=== PATIENT | male | born 1955 | race Caucasian/White ===

== ENCOUNTER 2020-01-14 11:12 | Emergency (ER) | payer MEDICARE, SELFPAY ==
[2020-01-14 11:25] VITALS: BP 130/80; PULSE 77; RESP 18; TEMP 37; O2SAT 98
--- NOTE | 2020-01-14 12:10 | PC.NURSE ---
NO UC ORDERED PER PROVIDER
--- NOTE | 2020-01-14 12:10 | ED.ABDPAIN ---
HPI - Abdominal Pain General Chief Complaint: Urogenital-Male Stated Complaint: Lower back pain Time Seen by Provider: 01/14/20 11:55 Source: patient and RN notes reviewed Mode of arrival: ambulatory Limitations: no limitations History of Present Illness HPI narrative: Patient presents today with a 2-week history of right upper back pain radiating to the right upper abdomen with urinary frequency. Pain increases when he goes to sit up or lie down. Rates his pain 3?6/10 and has been using a heating pad. Pain has been constant. Denies fever, nausea, vomiting, diarrhea, constipation, dysuria, hematuria. MD elicited complaint: other (Low back pain) Related Data Home Medications Medication Instructions Recorded Confirmed aripiprazole mg 01/14/20 glipizide mg PO 01/14/20 levothyroxine 01/14/20 lisinopril-hydrochlorothiazide tablet 01/14/20 pantoprazole PO 01/14/20 pravastatin 01/14/20 sertraline mg 01/14/20 sertraline mg 01/14/20 sildenafil 01/14/20 tamsulosin mg PO 01/14/20 testosterone cypionate mg 01/14/20 trazodone 01/14/20 Allergies Allergy/AdvReac Type Severity Reaction Status Date / Time acetaminophen Allergy Severe RASH Verified 01/14/20 11:42 codeine Allergy Severe RASH Verified 01/14/20 11:42 oxycodone Allergy Severe RASH Verified 01/14/20 11:42 Review of Systems Review of Systems: Narrative: CONSTITUTIONAL: Denies body aches, fever, chills, or sweats. EYES: Denies visual changes, redness, or discharge. ENT: Denies rhinorrhea, congestion, sore throat, or otalgia. CARDIOVASCULAR: Denies chest pain, palpitations, or edema. RESPIRATORY: Denies cough or dyspnea. GASTROINTESTINAL: Denies nausea, vomiting, or diarrhea. GENITOURINARY: Denies dysuria or hematuria. SKIN: Denies rash, itching, or wounds. MUSCULOSKELETAL: Denies joint pain, or myalgia. + Right back pain radiating to the right NEUROLOGIC: Denies headache, numbness, tingling, or weakness. PSYCH: Denies depression or anxiety. [facility] Past Medical History Medical History (Updated 01/14/20 @ 12:18 by Radha Riggs, CARE SUPPORT REPRESENTATIVE, ) Diabetes Comments At time of signature, I have reviewed and agree with nursing past medical, surgical, social and family history unless otherwise noted. Please see nursing chart for further information. There is no relevant family history pertinent to the presenting complaint Exam Narrative: Exam Narrative: GENERAL: Well-appearing, well-nourished, and in no acute distress. HEAD: Normocephalic, atraumatic. EYES: EOMI. No redness or drainage. Conjunctivae normal. ENT: Mucous membranes pink and moist. NECK: Normal AROM. CHEST: No respiratory distress. Clear to auscultation. HEART: Regular rate and rhythm. No murmur appreciated. Normal peripheral pulses. ABDOMEN: Soft, nondistended, normal active bowel sounds. +wren's sign MUSCULOSKELETAL: No bony tenderness. Small palpable muscle spasm in the lower lumbar right paraspinal muscles. EXTREMITIES: Normal range of motion. No edema. SKIN: Warm, dry, no rash. Capillary refill normal. Normal skin turgor. NEURO: No focal deficits. Alert and oriented x3. Gait steady. PSYCH: Normal affect. No signs of depression or anxiety. Course Course Emergency Course: As patient symptoms have been present for 2 weeks and he is not experiencing any additional symptoms, I told him that if he thought he could get into see his PCP in the next couple of days, that that would be an okay plan. States he tried to call his doctor, but could not get an appointment for another 2 weeks. At that point, I suggested she go to the ER for further evaluation of his right upper quadrant tenderness. He requested to go to [facility]. Vital Signs Vital signs: Vital Signs Temperature 98.6 F 01/14/20 11:25 Pulse Rate 77 01/14/20 11:25 Respiratory Rate 18 01/14/20 11:25 Blood Pressure 130/80 01/14/20 11:25 Pulse Oximetry 98 01/14/20 11:25 Temperature 98.6 F
== END 2020-01-14 12:20 | disposition short-term general hospital (02) ==
PROVIDERS: Emergency Provider Nurse Practitioner; PCP Family Medicine
DX: R10.811 Right upper quadrant abdominal tenderness (principal); E11.9 Type 2 diabetes mellitus without complications; E78.00 Pure hypercholesterolemia, unspecified; I10 Essential (primary) hypertension; K21.9 Gastro-esophageal reflux disease without esophagitis; N40.0 Benign prostatic hyperplasia without lower urinary tract symptoms; M19.90 Unspecified osteoarthritis, unspecified site; E03.9 Hypothyroidism, unspecified; F41.9 Anxiety disorder, unspecified; F32.9 Major depressive disorder, single episode, unspecified
CPT/HCPCS: 81003; 99212; G0463

== ENCOUNTER 2022-06-01 09:23 | Emergency (ER) | payer MEDICARE, SELFPAY ==
[2022-06-01 09:52] VITALS: BP 116/68; PULSE 84; RESP 20; TEMP 37.2; O2SAT 98
--- NOTE | 2022-06-01 10:32 | ED.EAR ---
HPI - Ear Problem General Chief complaint: Ear Stated complaint: right ear hears water Time Seen by Provider: 06/01/22 10:32 Source: patient and RN notes reviewed Mode of arrival: ambulatory Limitations: no limitations History of Present Illness HPI Narrative: 67-year-old male presents with concern for decreased hearing and pressure in the right ear that started Tuesday after swimming. He reports he used Q-tips to try to clean out the ear. He denies drainage from the ear. Denies upper respiratory infection symptoms. MD Complaint: decreased hearing Related Data Home Medications Medication Instructions Recorded Confirmed aripiprazole 2 mg tablet 2 mg PO DAILY 01/14/20 06/01/22 glipizide 10 mg tablet, extended 10 mg PO DAILY 01/14/20 06/01/22 release 24 hr levothyroxine 200 mcg tablet 200 mcg PO DAILY 01/14/20 06/01/22 lisinopril 20 1 tablet PO DAILY 01/14/20 06/01/22 mg-hydrochlorothiazide 25 mg tablet pantoprazole 40 mg tablet,delayed 40 mg PO DAILY 01/14/20 06/01/22 release pravastatin 40 mg tablet 40 mg PO DAILY 01/14/20 06/01/22 sertraline 100 mg tablet 100 mg PO DAILY 01/14/20 06/01/22 sildenafil 100 mg tablet 100 mg PO DAILY 01/14/20 06/01/22 tamsulosin 0.4 mg capsule 0.4 mg PO DAILY 01/14/20 06/01/22 testosterone cypionate 200 mg/mL 200 mg IM [id number] 01/14/20 06/01/22 intramuscular oil trazodone 50 mg tablet 50 mg PO DAILY 01/14/20 06/01/22 Allergies Allergy/AdvReac Type Severity Reaction Status Date / Time acetaminophen Allergy Severe RASH Verified 06/01/22 10:15 codeine Allergy Severe RASH Verified 06/01/22 10:15 oxycodone Allergy Severe RASH Verified 06/01/22 10:15 Review of Systems Review of Systems: CONSTITUTIONAL: Denies malaise, chills, sweats, or fever. EYES: Denies visual changes, redness, or discharge. ENT: Denies rhinorrhea, congestion, sinus pain, and sore throat. Reports decreased hearing and feeling of pressure in the right ear CARDIOVASCULAR: Denies chest pain, palpitations, or edema. RESPIRATORY: Denies cough. Denies dyspnea. GASTROINTESTINAL: Denies abdominal pain, nausea, vomiting, diarrhea SKIN: Denies rash or itching. MUSCULOSKELETAL: Denies myalgia. NEUROLOGIC: Denies headache. All systems reviewed & are unremarkable except as noted in HPI and below PMFSH Past Medical History Medical History (Updated 06/01/22 @ 11:13 by Susie Liu NP) Diabetes Comments At time of signature, agree with nursing past medical, surgical, social and family history. There is no relevant family history pertinent to the presenting complaint Exam Narrative: GENERAL: Well-appearing, well-nourished, and in no acute distress. HEAD: Normocephalic EYES: PERRLA, conjunctivae clear ENT: Nares clear. Mucous membranes moist. Left tM pearly cuevas with sharp light reflex, right TM not visible due to excess cerumen; no tragal tenderness. NECK: Supple. No lymphadenopathy CHEST: Clear to auscultation.. No respiratory distress, speaks in full sentences. HEART: Regular rate and rhythm SKIN: Warm, dry, no rash. NEURO: Alert and oriented x3. PSYCH: Normal mood and affect Course Course Emergency Course: Patient is aware of diagnosis, understands and agrees to treatment plan. Anticipatory guidance given. Patient agrees to follow-up as directed and is aware of reasons to seek care at the emergency department. Portions of this record may have been created with voice recognition software Level of Care: Express Care Visit Vital Signs Vital signs: Vital Signs Temperature 98.9 F 06/01/22 09:52 Pulse Rate 84 06/01/22 09:52 Respiratory Rate 20 06/01/22 09:52 Blood Pressure 116/68 06/01/22 09:52 Pulse Oximetry 98 06/01/22 09:52 Oxygen Delivery Room Air 06/01/22 09:52 Temperature 98.9 F 06/01/22 09:52 Pulse Rate 84 06/01/22 09:52 Respiratory Rate 20 06/01/22 09:52 Blood Pressure 116/68 06/01/22 09:52 Pulse Oximetry 98 06/01/22 09:52 Oxygen Delivery Room Air
== END 2022-06-01 11:14 | disposition home or self-care (01) ==
PROVIDERS: Emergency Provider Nurse Practitioner; PCP Family Medicine
DX: H60.91 Unspecified otitis externa, right ear (principal); H61.21 Impacted cerumen, right ear; E11.9 Type 2 diabetes mellitus without complications; Z79.84 Long term (current) use of oral hypoglycemic drugs
CPT/HCPCS: 69210; 99213; A9270; G0463